=== PATIENT | male | born 1980 | race African-American/Black ===

== ENCOUNTER 2017-07-01 07:51 | Emergency (ER) | payer SELFPAY ==
[2017-07-01] MEDS ORDERED: NORMAL SALINE 1000 ML 1,000 ML IV PRN (08:14)
[2017-07-01 08:36] LABS: HEMATOCRIT 44.6 % (37.9-51.0); HEMOGLOBIN 15.1 g/dL (13.5-17.0); HGB HCT DIFFERENCE 0.7; MEAN CORPUSCULAR HGB CONC 33.9 g/dL (32.0-36.0); MEAN CORPUSCULAR VOLUME 95 fl (80-97); RED BLOOD COUNT 4.71 10^6/uL (4.35-5.55); RED CELL DISTRIBUTION WIDTH 12.6 % (11.5-14.0); WHITE BLOOD COUNT 20.3 10^3/uL (4.0-10.5)
[2017-07-01 08:48] LABS: ALANINE AMINOTRANSFERASE 43 U/L (21-72); ALBUMIN 4.6 g/dL (3.5-5.0); ALKALINE PHOSPHATASE 88 U/L (38-126); ANION GAP 12 (5-19); ASPARTATE AMINO TRANSFERASE 34 U/L (17-59); BILIRUBIN,DIRECT 0.3 mg/dL (0.0-0.4); BILIRUBIN,TOTAL 0.9 mg/dL (0.2-1.3); BLOOD UREA NITROGEN 11 mg/dL (7-20); CALCIUM 10.2 mg/dL (8.4-10.2); CARBON DIOXIDE 24 mmol/L (22-30); CHLORIDE 105 mmol/L (98-107); CREATININE RESULT 1.03 mg/dL (0.52-1.25); GLUCOSE 136 mg/dL (75-110); LIPASE 59.6 U/L (23-300); POTASSIUM 4.1 mmol/L (3.6-5.0); SODIUM 140.7 mmol/L (137-145); TOTAL PROTEIN 7.6 g/dL (6.3-8.2)
[2017-07-01 08:57] LABS: APPEARANCE,URINE SLIGHTLY-CLOUDY; BILIRUBIN,URINE NEGATIVE (NEGATIVE); CALCIUM OXALATE CRYSTALS,URINE FEW /HPF; GLUCOSE, URINE NEGATIVE (NEGATIVE); KETONES,URINE NEGATIVE (NEGATIVE); LEUKOCYTE ESTERASE,URINE TRACE (NEGATIVE); NITRITE,URINE NEGATIVE (NEGATIVE); PROTEIN,URINE 100 mg/dL (NEGATIVE); URINE SPECIFIC GRAVITY 1.027
[2017-07-01 09:00] LABS: BAND NEUTROPHILS % (MANUAL) 2 % (3-5); BASOPHILS % (MANUAL) 0 % (0-2); EOSINOPHILS % (MANUAL) 0 % (0-6); LYMPHOCYTES % (MANUAL) 6 % (13-45); TOTAL CELLS COUNTED 100
[2017-07-01 09:01] LABS: RBC MORPHOLOGY COMMENT NORMO-CYTIC/CHROMIC
--- NOTE | 2017-07-01 10:13 | RADIOLOGY REPORT (SQ) ---
EXAM DESCRIPTION: CT LTD RENAL STONE PROTOCOL ON COMPLETED DATE/TIME: 07/01/2017 9:56 am REASON FOR STUDY: right flank pain COMPARISON: None. TECHNIQUE: CT scan of the abdomen and pelvis performed without intravenous or oral contrast. Images reviewed with lung, soft tissue, and bone windows. Reconstructed coronal and sagittal MPR images revi ewed. All images stored on PACS. All CT scanners at this facility use dose modulation, iterative reconstruction, and/or weight based d osing when appropriate to reduce radiation dose to as low as reasonably achievable (ALARA). [facility]: Dose Right [facility]: CareDose [facility]: Dose Right [facility]: Teradose 4D [facility]: [employer] RADIATION DOSE: Up-to-date CT equipment and radiation dose reduction techniques were employed. CTDIv ol: 2.5 mGy. DLP: 121 mGy-cm.mGy. LIMITATIONS: There is a relative paucity of mesenteric and retroperitoneal fat making delineation of abdominal and pelvic structures somewhat difficult FINDINGS: LOWER CHEST: No significant findings. No nodules or infiltrates. NON-CONTRASTED LIVER, SPLEEN, ADRENALS: Evaluation limited by lack of IV contrast. No identified sign ificant masses. PANCREAS: No masses. No peripancreatic inflammatory changes. GALLBLADDER: No identified stones by CT criteria. No inflammatory changes to suggest cholecystitis. RIGHT KIDNEY AND URETER: No suspicious masses. Assessment limited by lack of IV contrast. No signif icant calcifications. No hydronephrosis or hydroureter. LEFT KIDNEY AND URETER: No suspicious masses. Assessment limited by lack of IV contrast. No signifi cant calcifications. No hydronephrosis or hydroureter. AORTA AND RETROPERITONEUM: No aneurysm. No retroperitoneal masses or adenopathy. BOWEL AND PERITONEAL CAVITY: No obvious masses or inflammatory changes. No free fluid. APPENDIX: Normal. PELVIS, BLADDER, AND ABDOMINAL WALL:No abnormal masses. No free fluid. Bladder normal. BONES: No significant findings. OTHER: No other significant finding. IMPRESSION: NO SIGNIFICANT OR ACUTE PROCESS IN THE ABDOMEN OR PELVIS. COMMENT: Quality ID # [id number]: Final reports with documentation of one or more dose reduction techniques (e.g., Automated exposure control, adjustment of the mA and/or kV according to patient size, use of iterative reconstruction technique) TECHNICAL DOCUMENTATION: JOB ID: [id number]- All Rights Reserved
[2017-07-01] MEDS ORDERED: KETOROLAC TROMETHAMINE INJ/PF 30 MG/1 ML SDV IV ONE (11:05)
--- NOTE | 2017-07-01 11:16 | ER Document Report ---
ED General - General Chief Complaint: Abdominal Pain Stated Complaint: ABDOMINAL PAIN Time Seen by Provider: 07/01/17 08:14 TRAVEL OUTSIDE OF THE [place] IN LAST 30 DAYS: No - HPI Patient complains to provider of: Abdominal pain Notes: Patient coming in for right sided abdominal pain. Patient states mostly in the right lower part of his back that goes down into his testicle. Patient states pain started abruptly earlier this morning with nausea vomiting. Patient denies any diarrhea patient denies any fevers or chills. Patient denies trauma or recent antibiotic states pain is not relieved or exacerbated by any movement or other factors. Patient denies a history of kidney stones. Upon my evaluation patient is lying on his stomach. Easily turns over to his back. No signs of any obvious distress - Related Data Allergies/Adverse Reactions: Penicillins Allergy (Verified 07/01/17 07:55) Past Medical History - Social History Smoking Status: Current Every Day Smoker Frequency of alcohol use: Social Drug Abuse: None Family History: Reviewed & Not Pertinent Renal/ Medical History: Denies: Hx Peritoneal Dialysis Surgical Hx: Negative Review of Systems - Review of Systems Constitutional: No symptoms reported EENT: No symptoms reported Cardiovascular: No symptoms reported Respiratory: No symptoms reported Gastrointestinal: No symptoms reported Genitourinary: Flank pain Male Genitourinary: No symptoms reported Musculoskeletal: No symptoms reported Skin: No symptoms reported Hematologic/Lymphatic: No symptoms reported Neurological/Psychological: No symptoms reported -: Yes All other systems reviewed and negative Physical Exam - Vital signs Vitals: Temp Pulse Resp BP Pulse Ox 97.7 F 76 16 148/79 H 100 07/01/17 07:55 07/01/17 07:55 07/01/17 07:55 07/01/17 07:55 07/01/17 07:55 Interpretation: Normal - General General appearance: Appears well, Alert - HEENT Head: Normocephalic, Atraumatic Eyes: Normal Pupils: PERRL - Respiratory Respiratory status: No respiratory distress Chest status: Nontender Breath sounds: Normal Chest palpation: Normal - Cardiovascular Rhythm: Regular Heart sounds: Normal auscultation Murmur: No - Abdominal Inspection: Normal Distension: No distension Bowel sounds: Normal Tenderness: Nontender. No: Tender, McBurney's point, Walters's sign, Guarding, Rebound Organomegaly: No organomegaly - Genitourinary Inspection: Normal Scrotum: Normal - Back Back: Normal, Nontender - Extremities General upper extremity: Normal inspection, Nontender, Normal color, Normal ROM , Normal temperature General lower extremity: Normal inspection, Nontender, Normal color, Normal ROM , Normal temperature, Normal weight bearing. No: Bertrand's sign - Neurological Neuro grossly intact: Yes Cognition: Normal Orientation: AAOx4 [place] Coma Scale Eye Opening: Spontaneous [place] Coma Scale Verbal: Oriented [place] Coma Scale Motor: Obeys Commands [place] Coma Scale Total: 15 Speech: Normal Motor strength normal: LUE, RUE, LLE, RLE Sensory: Normal - Psychological Associated symptoms: Normal affect, Normal mood - Skin Skin Temperature: Warm Skin Moisture: Dry Skin Color: Normal Course - Re-evaluation Re-evalutation: 07/01/17 14:05 Patient examination shows more pain in the flank region urine does show signs of hematuria. With crystals decision was made to undergo a renal CAT scan read as normal. Upon further evaluate the patient patient states upon giving his urine sample he felt like something "let go" and pain was relieved. Although patient does have leukocytosis reevaluation shows still a nontender abdomen no McBurney's point tenderness long discussion with the patient about observation for an acute appendicitis however with his symptoms and he felt patient more likely passed a kidney stone. Will treat with pain medication nausea medication. Of note was called by local pharmacy stating the patient did not want to have his nausea medication filled and only wanted to have the pain medication. - Vital Signs Vital signs: Temp Pulse Resp BP Pulse Ox 98.1 F 77 16 145/74 H 99 07/01/17 11:19 07/01/17 11:19 07/01/17 11:19 07/01/17 11:19 07/01/17 11:19 - Laboratory Result Diagrams: 07/01/17 08:20 07/01/17 08:20 Laboratory results interpreted by me: 07/01/17 07/01/17 07/01/17 08:20 08:20 08:33 WBC 20.3 H Seg Neuts % (Manual) 88 H Band Neutrophils % 2 L Lymphocytes % (Manual) 6 L Abs Neuts (Manual) 18.3 H Glucose 136 H Urine Protein 100 H Urine Blood LARGE H Urine Urobilinogen 2.0 H Ur Leukocyte Esterase TRACE H Discharge - Discharge Clinical Impression: Right flank pain Disposition: HOME, SELF-CARE Instructions: Abdominal Pain ([facility]), Kidney Stone ([facility]), Observation for Appendicitis ([facility]) Additional Instructions: At this time your laboratory studies on shows slight increase in your white count and blood in your urine. I do believe you more likely passed a kidney stone this morning. This is probably the etiology of your pain. Your CAT scan does not show any signs of an acute appendicitis or another kidney stone at this time. Your CAT scan was otherwise normal. Because your pain is on the right side and I would continue to watch your self for fever if you develop a fever and continue to have right-sided pain please come back in for further evaluation. He may take Tylenol and Motrin for regular pain Ultram for severe pain. Prescriptions: Metoclopramide HCl [Reglan] 5 mg PO Q6 #30 tablet Tramadol HCl [Ultram 50 mg Tablet] 50 mg PO ASDIR PRN #20 tablet PRN Reason: Forms: Return to Work
[2017-07-01 11:21] VITALS: BP 145/74
== END 2017-07-01 11:25 | disposition home or self-care (01) ==
LOC: ER 07:51
DX: R10.9 Unspecified abdominal pain (principal); R10.31 Right lower quadrant pain; Z88.0 Allergy status to penicillin
CPT/HCPCS: 99284; 96361; 96374; 36415; 87086; 83690; 85025; 80053; 81001; 76380; J1885; J7030